=== PATIENT | female | born 1985 | race Caucasian/White ===

== ENCOUNTER 2018-05-17 06:41 | Day surgery (SDC) | payer BC, OTHER ==
[2018-05-16 15:21] VITALS: BMI 41.9
[2018-05-17] MEDS ORDERED: DESFLURANE GAS 240 ML BOTTLE IH ONE (07:13)
[2018-05-17] MEDS ORDERED: MIDAZOLAM HCL 2 MG/2 ML SINGLE DOSE VIAL ONE (07:21)
--- NOTE | 2018-05-17 07:52 | HP ---
Satellite PMH - Chief Complaint Chief Complaint: left ureteral calculus History of Present Illness: left ureteral calculus, stented History Source: Patient Limitations to Obtaining History: No Limitations - Past Medical History Allergies/Adverse Reactions: Allergies Allergy/AdvReac Type Severity Reaction Status Date / Time Sulfa (Sulfonamide Allergy Intermediate Rash Verified 05/17/18 07:13 Antibiotics) COLLEGE SPECIALIST: No: Alzheimer's, CVA, Dementia, Migraine, Multiple Sclerosis, Peripheral Neuropathy, Parkinson's, Seizure, Syncope, TIA, Vertigo, Other Cardiovascular: No: AFIB, Aneurysm, Aortic Insufficiency, Aortic Stenosis, CAD, CHF, Deep Vein Thrombosis, HTN, Hyperlipdemia, [place], Mitral Insufficiency, Mitral Stenosis, Murmur, Pulmonary Hypertension, Other Renal/: Yes: Renal Calculi, UTI ...LMP Comment: has IUD-doesnt get period - Current Medications Current Medications: Home Medications Medication Instructions Recorded NK [No Known Home Medication] 05/16/18 Satellite Physical Exam - Physical Examination Vital Signs: Vital Signs Period Temp Pulse Resp BP Sys/Metz Pulse Ox Last 24 Hr 97.6 F-97.6 F 81-81 20-20 120-120/68-68 98 General Appearance: Well Nourished, Well Developed, Alert & Oriented x3 ENT: Clear, No Discharge, No masses Lung: Clear to auscultation Heart: Regular rate & rhythm, Normal S1, Normal S2 Abdomen: Soft, No tenderness, No CVA Satellite Impression/Plan - Impression/Plan Impression: left ureteral stone Operative Procedure: ull Date to be Performed: 05/17/18
[2018-05-17] MEDS ORDERED: ACETAMINOPHEN 1000 MG/100 ML VIAL (NON FORMULARY) IVPB ONE (07:54)
[2018-05-17] MEDS ORDERED: LIDOCAINE HCL/PF 2% SDV 5ML VIAL ONE (07:55)
[2018-05-17] MEDS ORDERED: SUCCINYLCHOLINE CHLORIDE 200 MG/10 ML VIAL ONE (07:55)
[2018-05-17] MEDS ORDERED: PROPOFOL 20 ML ONE ×2 (07:55)
[2018-05-17] MEDS ORDERED: fentaNYL CITRATE 250 MCG/5 ML VIAL ONE (07:56)
[2018-05-17] MEDS ORDERED: IBUPROFEN 800 MG/8 ML IJ IVPB SCH (08:00)
[2018-05-17] MEDS ORDERED: DEXTROSE 5%-0.45% SALINE 1,000 ML IV SCH (08:00)
[2018-05-17] MEDS ORDERED: ceFAZolin SODIUM 1 GM VIAL IVPB ONE (08:10)
[2018-05-17] MEDS ORDERED: ceFAZolin SODIUM 1 GM VIAL ONE ×2 (08:14)
[2018-05-17] MEDS ORDERED: DEXAMETHASONE SOD PHOSPHATE 4 MG/1 ML VIAL ONE (08:14)
[2018-05-17] MEDS ORDERED: KETOROLAC TROMETHAMINE 30 MG/1 ML VIAL ONE (08:14)
[2018-05-17] MEDS ORDERED: ONDANSETRON 4 MG/2 ML VIAL IVPUSH PRN (08:42)
[2018-05-17] MEDS ORDERED: oxyCODONE HCL 5 MG TABLET PO PRN (08:42)
[2018-05-17] MEDS ORDERED: ACETAMINOPHEN INJECTION 100 ML IVPB ONE (09:04)
[2018-05-17 09:56] VITALS: TEMP 98.4
[2018-05-17 10:57] VITALS: BP 125/75; PULSE 69
--- NOTE | 2018-05-20 17:46 | PATH ---
Surgical Pathology Report Patient Name: DEANNA SPARKS [facility]. Rec. #: [id number] /Age/Gender: 1985 (Age: 32) / F Account: [id number] Location: [facility] Taken: 05/17/2018 Received: 05/17/2018 Reported: 05/20/2018 Physicians: Freedom Elliott M.D. Specimen(s) Received REMOVED STENT Clinical History Left kidney stone Final Diagnosis STENT, REMOVAL: CONSISTENT WITH URETERAL STENT. MACROSCOPIC DIAGNOSIS. Electronically Signed Padmaja Herrera M.D. Gross Description Received fresh labeled "removed stent" is a 35 cm in length blue, coiled portion of tubing, consistent with a ureteral stent. No soft tissue is present. No sections are submitted, gross only. 05/17/201805/17/2018
--- NOTE | 2018-05-28 10:27 | OP ---
DATE OF OPERATION: 05/17/2018 PREOPERATIVE DIAGNOSIS: Ureteral calculus. POSTOPERATIVE DIAGNOSIS: Ureteral calculus. PROCEDURE: Cystoscopy, ureteral stent removal, ureteroscopy on the left with laser lithotripsy. SURGEON: Freedom Elliott MD FINDING: A kidney stone. SPECIMEN: Stent. PREOPERATIVE INDICATIONS: The patient is a 32-year-old female who had presented initially with an infected left ureteral stone. A stent was placed. She has been treated with antibiotics, and she comes back now for stent and stone removal. OPERATION: Patient was brought to the OR, placed on the table in the supine position, given general anesthesia and IV antibiotics, then placed in the modified lithotomy position. Her groins were prepped and draped sterilely. Timeout was performed. Cystoscopy was performed. A stent was seen emerging from the left ureteral orifice. This was removed with a grasper. A wire was passed up into the left kidney. Ureteroscopy was performed. There were no stones seen along the course of the ureter. In the kidney, the aforementioned stone was seen in a mid-pole. Using a holmium laser fiber, the stone was broken up into small pieces of sand. No other stones of significant size were seen. Scope was removed. Bladder was emptied. The patient was woken up. FREEDOM ELLIOTT M.D. [id number]
== END 2018-05-17 11:16 | disposition home or self-care (01) ==
LOC: JASU-SURG 06:41
PROVIDERS: ATTEND Urology
PROC: 0TF48ZZ Fragmentation in Left Kidney Pelvis, Via Natural or Artificial Opening Endoscopic (ICD-10-PCS; principal; 2018-05-17 07:30)
PROC: 0TP98DZ Removal of Intraluminal Device from Ureter, Via Natural or Artificial Opening Endoscopic (ICD-10-PCS; 2018-05-17 07:30)
DX: N20.0 Calculus of kidney (principal)
CPT/HCPCS: 76000-TC-FY; 84703; 88300-TC; 94760; J0131